=== PATIENT | female | born 1970 | race Caucasian/White ===

== ENCOUNTER → 2017-09-17 | Emergency (ER) | payer OTHER, SELFPAY | PROVIDERS: Emergency Provider Nurse Practitioner; Family Provider Internal Medicine Adolescent Medicine; Visit Provider Nurse Practitioner | DX: K64.9 Unspecified hemorrhoids (principal); K21.9 Gastro-esophageal reflux disease without esophagitis; E78.5 Hyperlipidemia, unspecified | CPT/HCPCS: 99201 ==

== ENCOUNTER → 2018-12-08 16:46 | Outpatient (CLI) | payer OTHER, SELFPAY ==
--- NOTE | 2018-12-08 16:54 | MM_ITS ---
MM Dig screening mamm BI w/CAD ORDERING PHYSICIAN : Rebel Sanford MD PATIENT AGE: 48 years GENDER: Female COMPARISON: Bilateral digital mammogram studies from July 2013 from [facility] November 2010 from [facility] + August 2013 bilateral breast ultrasound which revealed scattered cysts bilaterally. Reflecting underlying fibrocystic change INDICATION: ...: ROUTINE SCREENING no new complaints. No hormones. Noncontributory family history. TECHNIQUE: Standard CC and MLO images were obtained. R2 CAD reviewed. FINDINGS: Heterogeneous but fairly dense breast pattern bilaterally I however similar to previous studies. This breast pattern slightly decreases sensitivity of mammography but no discrete focal dominant mass nor suspicious calcifications. RIGHT BREAST:No new findings of significant concern. 2 areas of few very tiny & faint punctate calcifications at lateral right breast on also seen previously is slightly more evident today. Appears be most likely vascular calcifications on the lateral view. Follow-up in one year would be recommended and encouraged Slight nodular character bilaterally is similar as well. LEFT BREAST: No focal mass lesion. There numerous tiny calcifications, scattered throughout the superior breast. These are best seen superior anterior breast MLO view (with inverted contrast image) . They do seem to be quite scattered on the cc view. This pattern most compatible with adenosis and fibrocystic change. , Comment: The scattered cysts seen in both breast seen on 2013 outside ultrasound confirms the suspected underlying fibrocystic changes and tends to further supports we are merely viewing benign adenosis/fibrocystic calcifications. Thus I believe this 6 month follow-up approach is best approach in this patient, with no interval mammogram studies since 2013 . Also these calcifications are quite small at this point with no one area of significant greater concern than another; and thus would benefit from this time interval to observe for any 1 shows change.. IMPRESSION: .......... Recommend 6- 7 month follow-up to confirm stability of most likely benign adenosis calcifications Left breast. Numerous very tiny faint calcification superior left breast most compatible with adenosis these are slightly more evident than previous study Right breast. Faint loosely grouped calcifications upper-outer quadrant is perhaps very slightly more pronounced than previous outside study as well. Favor adenosis/fibrocystic calcifications bilaterally- but I would recommend a 6-7 month bilateral follow-up mammogram further evaluate. Those should include magnification views at that time. (Again the 2013 mammogram showed numerous small cyst confirming underlying fibrocystic changes which I believe further support this 6-7 month follow-up approach) Heterogeneous Moderately dense breast-slightly decreases sensitivity of mammography BI-RADS Category: 3 Probably Benign Finding Short Term Follow-up RECOMMENDED FOLLOW-UP: 6M to 7 MONTH FOLLOW-UP . Short interval follow-up mammogram bilateral-to include magnification views at that time (A letter has been sent to the patient regarding results of the study.)
== END ==
PROVIDERS: PCP Internal Medicine Adolescent Medicine; Visit Provider Internal Medicine Adolescent Medicine
DX: Z12.31 Encounter for screening mammogram for malignant neoplasm of breast (principal)
CPT/HCPCS: 77067

== ENCOUNTER → 2019-02-04 12:30 | Outpatient (CLI) | payer OTHER, SELFPAY | PROVIDERS: PCP Internal Medicine Adolescent Medicine; Visit Provider Internal Medicine Adolescent Medicine | DX: G47.33 Obstructive sleep apnea (adult) (pediatric) (principal); G47.10 Hypersomnia, unspecified; R06.83 Snoring | CPT/HCPCS: 95806 ==

== ENCOUNTER → 2019-08-01 16:18 | Outpatient (CLI) | payer OTHER, SELFPAY ==
[2019-08-01 17:01] LABS: Basophils # 0.1 K/mm3 (0-0.2); Basophils % 0.6 % (0.1-2.0); Eosinophils # 0.1 K/mm3 (0.0-0.4); Eosinophils % 1.1 % (0.1-12.0); Hematocrit 45.1 % (37.0-47.0); Lymphocytes # 2.2 K/mm3 (0.7-4.5); Lymphocytes % 25.1 % (10-50); Mean Corpuscular Hemoglobin 29.4 pg (27.0-31.2); Mean Platelet Volume 8.6 fl (7.4-10.4); Monocytes # 0.4 K/mm3 (0.1-1.0); Monocytes % 4.2 % (1.7-9.3); Platelet Count 298 K/mm3 (142-424); Red Blood Count 4.75 M/mm3 (4.20-5.40); Red Cell Distribution Width 13.5 % (11.5-17.5); White Blood Count 8.7 K/mm3 (4.8-10.8)
[2019-08-01 18:20] LABS: Alanine Aminotransferase 25 U/L (12-78); Albumin Level 3.9 gm/dL (3.4-5.0); Alkaline Phosphatase 92 U/L (46-116); Anion Gap 15.8 mEq/L (5-15); Aspartate Amino Transferase 14 U/L (15-37); Bilirubin,Total 0.3 mg/dL (0.2-1.0); Blood Urea Nitrogen 10 mg/dL (7-18); Calcium 9.2 mg/dL (8.5-10.1); Carbon Dioxide 23 mmol/L (21.0-32.0); Chloride 104 mmol/L (98-107); Creatinine,Serum 0.73 mg/dL (0.55-1.02); Estimated Glomerular Filt Rate 86 ml/min (>60); GFR (African American) 104 ML/MIN (>60); Globulin 3.8 gm/dl (1.3-3.2); Glucose 80 mg/dL (74-106); Lipase 95 u/L (73-393); Potassium 3.8 mmoL/L (3.5-5.1); Sodium 139 mmol/L (136-145); Total Protein,Serum 7.7 gm/dL (6.4-8.2)
== END ==
PROVIDERS: Visit Provider Internal Medicine Adolescent Medicine
DX: R10.11 Right upper quadrant pain (principal)
CPT/HCPCS: 36415; 80053; 83690; 85025

== ENCOUNTER → 2019-08-02 09:48 | Outpatient (CLI) | payer OTHER, SELFPAY ==
--- NOTE | 2019-08-02 10:12 | US_ITS ---
PROCEDURE: US ABDOMEN COMPLETE CLINICAL INDICATION: RUQ PAIN Abdominal pain COMPARISON: No exams were available for comparison FINDINGS: PANCREAS: Unremarkable. No obvious mass or abnormal fluid collection. No ductal dilatation LIVER: No focal liver lesions demonstrated. Homogeneous echogenicity. No intrahepatic biliary ductal dilatation evident. There is appropriate direction of blood flow within a non dilated portal vein RIGHT KIDNEY: Unremarkable. Normal size and echogenicity. No hydronephrosis LEFT KIDNEY: Unremarkable. Normal size and echogenicity. No hydronephrosis GALLBLADDER: Status post cholecystectomy. Normal common bile duct at 3 mm AORTA: No evidence of aneurysmal dilatation. SPLEEN: Unremarkable. Normal size and echogenicity ASCITES: None demonstrated. IMPRESSION: Post cholecystectomy otherwise negative Dictated by: Juwan Oro MD 08/02/2019 16:42 Electronically signed by Juwan Oro MD in [place] 08/02/2019 16:42
== END ==
PROVIDERS: PCP Internal Medicine Adolescent Medicine; Visit Provider Internal Medicine Adolescent Medicine
DX: R10.11 Right upper quadrant pain (principal)
CPT/HCPCS: 76700

== ENCOUNTER → 2021-07-08 09:32 | Outpatient (CLI) | payer OTHER, SELFPAY ==
--- NOTE | 2021-07-08 09:34 | MM_ITS ---
PROCEDURE INFORMATION: Exam: MG Bilateral Screening 3D Mammography Exam date and time: 07/08/2021 9:34 AM Age: 50 years old Clinical indication: Encounter for screening mammogram for malignant neoplasm of breast TECHNIQUE: Imaging protocol: Bilateral screening tomosynthesis and 2D mammography including computer-aided detection (CAD) when performed. COMPARISON: 12/08/2018. 08/26/2013 FINDINGS: MAMMOGRAPHY: Breast composition: The breasts are extremely dense, which lowers the sensitivity of mammography. Mass: No suspicious masses. Architectural distortion: Questionable focal area of architectural distortion in the central anterior right breast at the nipple line, only well seen on CC frame 49. Finding may represent overlapping breast parenchyma. Calcifications: No suspicious calcifications. Asymmetric density: Questionable 1 cm asymmetry in the outer right breast, anterior to middle depth, only well seen on CC frame 34. Finding may represent overlapping breast parenchyma. Skin thickening: None. Axillary adenopathy: None. IMPRESSION: 1. Recommend right breast spot compression CC/MLO view and ultrasound for further evaluation of a questionable asymmetry in the outer right breast, only well seen on CC projection. 2. Recommend left breast spot compression CC/MLO view and ultrasound for further evaluation of a questionable focal area of architectural distortion in the central anterior right breast, only well seen on CC projection. ASSESSMENT: BI-RADS Category 0: Incomplete- Need Additional Imaging Evaluation and/or Prior Mammograms for Comparison
== END ==
PROVIDERS: PCP Nurse Practitioner Family; Visit Provider Obstetrics & Gynecology Gynecology
DX: Z12.31 Encounter for screening mammogram for malignant neoplasm of breast (principal)
CPT/HCPCS: 77063; 77067

== ENCOUNTER → 2021-08-07 13:42 | Outpatient (CLI) | payer OTHER, SELFPAY ==
--- NOTE | 2021-08-07 13:47 | MM_ITS ---
PROCEDURE: MM DIG MAMM BI DX W/CAD Ultrasound breast right complete Ultrasound breast left complete CLINICAL INDICATION: ABN MAMM COMPARISON: MG DMSB DIG MAMM-SCREEN DENA from 08/26/2013 MG SCBI MM Dig screening mamm BI w/CAD from 12/08/2018 MG MM DIG SCREENING MAMM BI W/CAD from 07/08/2021 US US BREAST LT COMPLETE from 08/07/2021 US US BREAST RT COMPLETE from 08/07/2021 TECHNIQUE: Spot-compression views in bilateral breast ultrasound FINDINGS: The breasts are extremely dense which lowers the sensitivity of mammography. The right breast: Focal spot view of the right breast on the MLO view demonstrates a 4 mm nodular density in the upper aspect of the right breast. This is not well delineated on the ML view and could be due to overlapping fibroglandular tissue. There is also a cyst in the right breast at 12 o'clock which could cause this finding. The questionable area of architectural distortion in the lateral aspect of the right breast appears a compress out on the focal spot compression view and is not demonstrated on the rolled views. The spot-compression views do demonstrate a 5 mm nodular opacity in the lateral aspect of the right breast. This is well-circumscribed and not duplicated on ultrasound. Right breast ultrasound: At 12 o'clock there is a 4 mm cyst near the nipple. At 2 o'clock there is a 5 x 4 cyst mid aspect of the breast.. At 5 o'clock there is a 4 mm cyst. Left breast: No malignant appearing mass or malignant-appearing microcalcification. The area of asymmetry in the retroareolar region is not duplicated on the spot compression view. Left breast ultrasound: 6 mm cyst at 3 o'clock. Seven by 2 x 5 mm complicated cyst at 8 o'clock. 6 mm cyst at 8 o'clock IMPRESSION: Probably benign findings. Recommend bilateral 6 month mammographic and sonographic follow-up BI-RAD Category: 3 Probably Benign Finding Short Term Follow-Up FOLLOW-UP: 6M 6 Month Follow-up (A letter has been sent to the patient regarding results of the study.) Dictated by: Juwan Oro MD 08/13/2021 15:46 Juwan Oro MD in [place] 08/13/2021 15:46
== END ==
PROVIDERS: PCP Nurse Practitioner Family; Visit Provider Obstetrics & Gynecology Gynecology
DX: R92.8 Other abnormal and inconclusive findings on diagnostic imaging of breast (principal)
CPT/HCPCS: 76641; 77062; 77066; G0279

== ENCOUNTER → 2022-02-04 13:30 | Outpatient (CLI) | payer BC, SELFPAY ==
--- NOTE | 2022-02-04 13:41 | US_ITS ---
PROCEDURE INFORMATION: Exam: US Left Breast, Complete US Right Breast, Complete MG Bilateral Diagnostic Breast Tomosynthesis Exam date and time: 02/04/2022 1:34 PM Age: 51 years old Clinical indication: Six-month follow-up for probably benign bilateral asymmetries in sonographic findings from 07/08/2021. TECHNIQUE: Imaging protocol: Complete ultrasound of all four quadrants of the Left breast and the retroareolar regions, including ultrasound of the axilla when performed. Complete ultrasound of all four quadrants of the Right breast and the retroareolar regions, including ultrasound of the axilla when performed. Bilateral Diagnostic tomosynthesis and 2D mammography including computer-aided detection (CAD) when performed. Unilateral or bilateral exam. Limited bilateral spot compression in the CC and MLO views on both sides. COMPARISON: 1. MG MM DIG MAMM BI DX W/CAD 08/07/2021 1:49 PM 2. US BREAST RT COMPLETE 08/07/2021 2:26 PM 3. US BREAST LT COMPLETE 08/07/2021 2:14 PM 4. MG MM DIG SCREENING MAMM BI W/CAD 07/08/2021 9:45 AM 5. MG SCBI MM Dig screening mamm BI w/CAD 12/08/2018 4:57 PM 6. BB US BREAST-DENA 09/14/2013 2:28 PM 7. MG DMSB DIG MAMM-SCREEN DENA 08/26/2013 8:05 AM FINDINGS: MAMMOGRAPHY: Breast composition: The breasts are extremely dense, which lowers the sensitivity of mammography. Mass: None. Architectural distortion: None. Calcifications: No suspicious calcifications. Asymmetric density: None. Skin thickening: None. Axillary adenopathy: None. ULTRASOUND: Bilateral sonography, all 4 quadrants, retroareolar and axilla. On the right, mildly complicated clusters of cysts, at 5 o'clock 3 cm from the nipple, measuring 0.5 x 0.4 by 1.0 cm, which may correspond to the cyst annotated at 5 o'clock near the nipple on 08/07/2021 which measured 0.3 cm; and at 11 o'clock 5 cm from the nipple measuring 1.0 x 0.7 x 0.5 cm. Scattered subcentimeter benign-appearing cysts. No suspicious cystic or solid masses or non masslike findings demonstrated. Sonographically unremarkable right axillary lymph node. On the left, mildly complicated clusters of cysts, at 1 o'clock 6 cm from the nipple, measuring 0.4 x 0.5 x 0.5 cm, at 8 o'clock 9 cm from the nipple measuring 0.5 x 0.3 x 0.5 cm, and at 8 o'clock 12 cm from the nipple measuring 0.7 x 0.3 x 0.6 cm which measured 0.7 cm on 08/07/2021. No suspicious cystic or solid masses or non masslike findings demonstrated. Sonographically unremarkable left axillary lymph node. IMPRESSION: Probably benign waxing and waning mildly complicated cysts, suggest six-month follow-up targeted bilateral breast ultrasound, on the right 5, and 11 o'clock axes and on the left at 1 and 8 o'clock axes, unless otherwise clinically indicated. No mammographic evidence of malignancy ASSESSMENT: BI-RADS Category 3: Probably benign
== END ==
LOC: RAD 13:30
PROVIDERS: PCP Nurse Practitioner Family; Visit Provider Nurse Practitioner Family
DX: R92.2 Inconclusive mammogram (principal)
CPT/HCPCS: 76641; 77062; 77066; G0279

== ENCOUNTER 2023-02-11 15:05 | Emergency (ER) | payer BC, SELFPAY ==
[2023-02-11] VITALS (7 sets, daily range): BP systolic 117–160; BP diastolic 78–89; PULSE 63–79; RESP 10–18; TEMP 36.6–36.9; O2SAT 96–99; BMI 40.6
--- NOTE | 2023-02-11 15:08 | ECG_ITS ---
APPROVED REPORT Exam: Resting ECG HR:67 bpm ECG Measurements Heart Rate 67 AXES MN 145 P 45 QRSd 85 QRS 24 QT 406 T 27 QTc 422 Conclusion SINUS RHYTHM NORMAL ECG UNCONFIRMED REPORT Electronically signed by : Rebel Sanford MD 02/12/2023 21:40:21
--- NOTE | 2023-02-11 16:33 | XR_ITS ---
PROCEDURE INFORMATION: Exam: XR Chest Exam date and time: 02/11/2023 5:21 PM Age: 52 years old Clinical indication: Pain; Left-sided; Patient HX: Lt sided cp w SOA just [employer]; Additional info: Chest pain TECHNIQUE: Imaging protocol: Radiologic exam of the chest. Views: 2 views. COMPARISON: CR CXR CHEST(2 VIEWS-NOT PORTABLE) 16/09/2016 15:45 FINDINGS: Lungs: Stigmata of old granulomatous disease. Pleural spaces: Unremarkable. No pleural effusion. No pneumothorax. Heart/Mediastinum: Unremarkable. No cardiomegaly. Bones/joints: Unremarkable. IMPRESSION: No acute findings.
[2023-02-11 17:10] LABS: Anion Gap 16.6 mEq/L (5-15); Blood Urea Nitrogen 10 mg/dl (7-17); Calcium 8.4 mg/dl (8.4-10.2); Carbon Dioxide 22 mmol/L (22.0-30.0); Chloride 105 mmol/L (98-107); Creatinine Clearance Estimated 130 mL/min (50-200); Estimated Glomerular Filt Rate 76 ml/min (>60); GFR (African American) 92 ML/MIN (>60); Glucose 132 mg/dl (74-100); Potassium 3.6 mmoL/L (3.5-5.1); Sodium 140 mmol/L (136-145)
[2023-02-11 17:23] LABS: Troponin I < 0.01 ng/ml (0.00-0.034)
--- NOTE | 2023-02-11 17:58 | HMH.EDGENADL ---
Discharge Plan Disposition Patient Disposition: Home, Self-Care Condition: Good Chief Complaint: Chest Pain Prescriptions Prescriptions: No Action pravastatin 40 mg tablet 40 mg PO HS citalopram 20 mg tablet 20 mg PO DAILY mirtazapine 30 mg tablet 30 mg PO DAILY lansoprazole 30 mg capsule,delayed release(DR/EC) 30 mg PO DAILY propranolol 20 mg tablet 20 mg PO BID topiramate 50 mg tablet 50 mg PO BID budesonide-formoterol 160-4.5 mcg/actuation HFA aerosol inhaler 1 inh INHALATION DAILYP PRN (Reason: Breathing Problems) Referrals Follow up/Referrals: Eryn Hdez [Primary Care Provider] - See instructions Clinical Impressions Clinical Impression: Chest pain Instructions Patient Instructions: DI for Atypical Chest Pain Print Language Print Language: Lithuanian Discharge ED Provider: Lucas Bradford General Adult HPI General Chief complaint: Chest Pain Stated complaint: Chest pain for 2-3 days Time Seen by Provider: 02/11/23 18:28 Mode of Arrival: Ambulatory Source of Information: Patient Limitations: No Limitations Description of Symptoms (Recalled from ER Triage Doc. by RN): 52 F presents from home c/o left sided chest pain that started 2-3 days ago. She describes the pain as stabbing at times. Pain has not gotten better or worse. Denies cardiac history in the past. NAD, VSS otherwise History of Present Illness HPI narrative: Patient presents to the emergency department with a 2 to 3-day history of left-sided chest pain. Patient states that it has been somewhat persistent. Denies any fever, chills, cough, congestion. Does describe some associated shortness of breath. Denies any vomiting or diarrhea. Denies any chest pain at this time. States that her pain initially started around 130 this afternoon. Related Data Home Medications Medication Instructions Recorded Confirmed budesonide-formoterol HFA 160 1 inh inhalation DAILYP PRN 02/11/23 02/11/23 mcg-4.5 mcg/actuation aerosol Breathing Problems inhaler citalopram 20 mg tablet 20 mg PO DAILY Acid reflux 02/11/23 02/11/23 lansoprazole 30 mg capsule,delayed 30 mg PO DAILY Acid reflux 02/11/23 02/11/23 release mirtazapine 30 mg tablet 30 mg PO DAILY Mood 02/11/23 02/11/23 pravastatin 40 mg tablet 40 mg PO HS Cholesterol 02/11/23 02/11/23 propranolol 20 mg tablet 20 mg PO BID High blood pressure 02/11/23 02/11/23 topiramate 50 mg tablet 50 mg PO BID Migraine 02/11/23 02/11/23 Allergies Allergy/AdvReac Type Severity Reaction Status Date / Time buspirone [From BuSpar] Allergy Verified 09/12/19 12:20 fluticasone Allergy Verified 09/12/19 12:20 [From Advair Diskus] formoterol [From Dulera] Allergy Verified 09/12/19 12:20 mometasone furoate Allergy Verified 09/12/19 12:20 [From Dulera] salmeterol Allergy Verified 09/12/19 12:20 [From Advair Diskus] Sulfa (Sulfonamide Allergy Verified 09/12/19 12:20 Antibiotics) [facility] Disclaimer: The information contained in this section may have been updated after the patient was seen, as this information can be updated by other users. 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
[2023-02-11 18:09] LABS: Basophils # 0.1 K/mm3 (0-0.2); Basophils % 0.9 % (0.1-2.0); Eosinophils # 0.3 K/mm3 (0.0-0.4); Eosinophils % 3.8 % (0.1-12.0); Hematocrit 44.8 % (37.0-47.0); Lymphocytes # 2.3 K/mm3 (0.7-4.5); Lymphocytes % 33.1 % (10-50); Mean Corpuscular HGB Conc 31.2 g/dL (31.8-35.4); Mean Corpuscular Hemoglobin 28.6 pg (27.0-31.2); Mean Corpuscular Volume 91.7 fl (81-99); Mean Platelet Volume 9.2 fl (7.4-10.4); Monocytes # 0.4 K/mm3 (0.1-1.0); Monocytes % 5.8 % (1.7-9.3); Neutrophils # 3.8 K/mm3 (1.8-7.8); Neutrophils % 56.5 % (37.0-80.0); Platelet Count 267 K/mm3 (142-424); Red Blood Count 4.88 M/mm3 (4.20-5.40); Red Cell Distribution Width 13.8 % (11.5-17.5); White Blood Count 6.8 K/mm3 (4.8-10.8)
--- NOTE | 2023-02-11 18:21 | PC.NURSE ---
rounded on pt no complaints at this time
== END 2023-02-11 18:58 | disposition home or self-care (01) ==
PROVIDERS: Emergency Provider Emergency Medicine; PCP Nurse Practitioner Family
DX: R07.9 Chest pain, unspecified (principal); R06.02 Shortness of breath
CPT/HCPCS: 71046; 80048; 84484; 85025; 93005; 99285

== ENCOUNTER 2024-04-09 14:35 | Emergency (ER) | payer BC, SELFPAY ==
[2024-04-09 14:55] VITALS: BP 133/82; PULSE 67; RESP 18; TEMP 36.9; O2SAT 97; BMI 41.9
--- NOTE | 2024-04-09 14:59 | XR_ITS ---
PROCEDURE INFORMATION: Exam: XR Left Hand Exam date and time: 04/09/2024 2:56 PM Age: 53 years old Clinical indication: Injury or trauma; Fall; Blunt trauma (contusions or hematomas); Hand; Left; Additional info: Pain TECHNIQUE: Imaging protocol: Radiologic exam of the left hand. Views: 3 or more views. COMPARISON: CR XR WRIST LT MIN 3V 04/09/2024 2:54 PM FINDINGS: Bones/joints: There is normal anatomic alignment of the left wrist. There is no fracture or destructive bone lesion. Soft tissues: Normal. IMPRESSION: Unremarkable left wrist.
--- NOTE | 2024-04-09 14:59 | XR_ITS ---
PROCEDURE INFORMATION: Exam: XR Left Wrist Exam date and time: 04/09/2024 2:54 PM Age: 53 years old Clinical indication: Injury or trauma; Fall; Blunt trauma (contusions or hematomas); Wrist; Left; Additional info: Pain TECHNIQUE: Imaging protocol: Radiologic exam of the left wrist. Views: 3 or more views. COMPARISON: No relevant prior studies available. FINDINGS: Bones/joints: Normal. No fracture or destructive bone lesion. Soft tissues: Normal. IMPRESSION: No acute findings.
--- NOTE | 2024-04-09 15:27 | ED_ITS ---
Discharge Plan Disposition Patient Disposition: Home, Self-Care Condition: Good Prescriptions Prescriptions: No Action pravastatin 40 mg tablet 40 mg PO HS citalopram 20 mg tablet 20 mg PO DAILY mirtazapine 30 mg tablet 30 mg PO DAILY propranolol 20 mg tablet 20 mg PO BID topiramate 50 mg tablet 50 mg PO BID omeprazole 40 mg Capsule,Delayed Release(Dr/Ec) 40 mg PO DAILY ergocalciferol (vitamin D2) [Vitamin D2] 1,250 mcg (50,000 unit) capsule 1,250 mcg PO WEEKLY Patient Comments: TAKE 1 CAPSULE 1 TIME EACH WEEK Referrals Follow up/Referrals: Eryn Hdez [Primary Care Provider] - See instructions Activity Restrictions/Add. Instructions Additional Instructions/Restrictions: sprain- rest Ice with cold pack for 20 minutes remove may repeat for comfort every hour splint for support and swelling. remove tomorrow and do rom exercises. Elevate with arm above your heart as much as possible to help reduce swelling and therefore pain Ibuprofen every 6 hours as needed for pain or inflammation. If needs something more you can take Tylenol every 4 hours as needed as long as her primary care has told he was okayed for you to take both. Follow-up immediately if new or worsening symptoms or no noticeable improvement over the next 3-5 days. call ortho Clinical Impressions Clinical Impression: Left wrist sprain, Hand pain, left Instructions Patient Instructions: DI for Wrist Sprain, DI for Hand Pain Discharge ED Provider: Matt ([facility] [place] Stated complaint: AO 04/09/24, 06:00, fell, inj left hand Mode of Arrival: Ambulatory Source of Information: Patient Limitations: No Limitations Time Seen by Provider: 04/09/24 15:27 Description of Symptoms (Recalled from Triage Doc. by RN): PATIENT C/O PAIN TO LEFT HAND. SHE STATES SHE FELL THIS MORNING AND TRIED TO CATCH HERSELF WITH HER LEFT HAND HEENT Symptoms (Recalled from RN notes): No Resp Symptoms (Recalled from RN notes): No Skin Symptoms (Recalled from RN notes): No MS Symptoms (Recalled from RN notes): Yes Functional Status (Recalled from RN notes): WNL History of Present Illness Provider Complaint: 53 yr old female presents for left hand pain s/p fall. pt states she caught herself with her hand Related Data Home Medications Medication Instructions Recorded Confirmed citalopram 20 mg tablet 20 mg PO DAILY Acid reflux 02/11/23 04/09/24 mirtazapine 30 mg tablet 30 mg PO DAILY Mood 02/11/23 04/09/24 pravastatin 40 mg tablet 40 mg PO HS Cholesterol 02/11/23 04/09/24 propranolol 20 mg tablet 20 mg PO BID High blood pressure 02/11/23 04/09/24 topiramate 50 mg tablet 50 mg PO BID Migraine 02/11/23 04/09/24 ergocalciferol (vitamin D2) 1,250 1,250 mcg PO WEEKLY 04/09/24 04/09/24 mcg (50,000 unit) capsule (Vitamin D2) omeprazole 40 mg capsule,delayed 40 mg PO DAILY 04/09/24 04/09/24 release Allergies Allergy/AdvReac Type Severity Reaction Status Date / Time buspirone [From BuSpar] Allergy Verified 09/12/19 12:20 fluticasone Allergy Verified 09/12/19 12:20 [From Advair Diskus] formoterol [From Dulera] Allergy Verified 09/12/19 12:20 mometasone furoate Allergy Verified 09/12/19 12:20 [From Dulera] salmeterol Allergy Verified 09/12/19 12:20 [From Advair Diskus] Sulfa (Sulfonamide Allergy Verified 09/12/19 12:20 Antibiotics) Worker's Comp Is this a Worker's Comp case?: No [facility] Disclaimer: The information contained in this section may have been updated after the patient was seen, as this information can be updated by other users. 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) Smoking Status: Never smoker second hand exposure: Yes alcohol intake: never substance use type: denies use current occupational status: employed Travel in the last 8 weeks: None household members: spouse housing: house current occupation: [employer] current occupational exposures/hazards: No caffeine: Yes ROS Obtained: Yes All systems reviewed & no additional complaints except as documented Constitutional Constitutional: Reports system reviewed and no additional complaints, except as documented Eyes Eyes: Reports system reviewed and no additional complaints, except as documented ENT Ears, Nose, Mouth, and Throat: Reports system reviewed and no additional complaints, except as documented Cardiovascular Cardiovascular: Reports system reviewed and no additional complaints, except as documented Respiratory Respiratory: Reports system reviewed and no additional complaints, except as documented Musculoskeletal Musculoskeletal: Reports system reviewed and no additional complaints, except as documented, Reports as per HPI, Reports joint stiffness and Reports limited range of motion Integumentary/Breasts Skin/Breast: Reports system reviewed and no additional complaints, except as documented Neurologic Neurologic: Reports system reviewed and no additional complaints, except as documented Endocrine Endocrine: Reports system reviewed and no additional complaints, except as documented Hematologic/Lymphatic Henatologic/Lymphatic: Reports system reviewed and no additional complaints, except as documented Physical Exam General General appearance: alert and in no apparent distress ENT ENT exam: Present normal exam Respiratory Respiratory exam: Present normal lung sounds bilaterally Cardiovascular Cardiovascular exam: Present regular rate and normal rhythm Expanded Upper Extremity Exam Left: Hand L/R front image: 2 1. other (tender) Neurological Exam Neurological exam: Present alert and oriented X3 Skin Skin exam: Present warm and intact Medical Decision Making Medical Records Medical records reviewed: Yes I reviewed the patient's medical records. Hayes Inquiry Pt receiving controlled substance: No Hayes was queried for this patient: No Vital Signs: 04/09/24 14:55 Temperature 98.5 F Temperature Source Oral Pulse Rate [Right Brachial] 67 Respiratory Rate 18 Blood Pressure [Right Arm] 133/82 Blood Pressure Mean [Right Arm] 99 Blood Pressure Source [Right Arm] Automatic Cuff Blood Pressure Position [Right Arm] Sitting 02 Sat by Pulse Oximetry 97 Oxygen Delivery Method Room Air Orders (Tests/Meds): ORDERS Category Date Time Status Wrist XR left minimum 3 views [XR wrist LT min 3V] Stat Exams 04/09/24 14:59 Taken XR hand LT min 3V Stat Exams 04/09/24 14:59 Taken Radiology Data #1: Image(s): Wrist and Hand Image Reviewed: Yes I have reviewed radiologist's interpretation Preliminary Findings: Normal/NAD
[2024-04-09 15:54] VITALS: BP 133/82; PULSE 67; RESP 18; TEMP 36.9; O2SAT 97
== END 2024-04-09 15:58 | disposition home or self-care (01) ==
PROVIDERS: Emergency Provider Nurse Practitioner Family; PCP Nurse Practitioner Family
DX: S63.502A Unspecified sprain of left wrist, initial encounter (principal); M79.642 Pain in left hand; W19.XXXA Unspecified fall, initial encounter
CPT/HCPCS: 73110; 73130; 99203; 99212; G0463

== ENCOUNTER 2024-05-06 11:54 | Outpatient (CLI) | payer BC, SELFPAY ==
[2024-05-06 12:23] LABS: Basophils # 0.1 K/mm3 (0-0.2); Basophils % 1.1 % (0.1-2.0); Eosinophils # 0.2 K/mm3 (0.0-0.4); Eosinophils % 2.9 % (0.1-12.0); Hematocrit 46.5 % (37.0-47.0); Hemoglobin 14.5 g/dL (12.2-16.2); Lymphocytes % 25.8 % (10-50); Mean Corpuscular HGB Conc 31.2 g/dL (31.8-35.4); Mean Corpuscular Hemoglobin 30.4 pg (27.0-31.2); Mean Corpuscular Volume 97.6 fl (81-99); Mean Platelet Volume 8.4 fl (7.4-10.4); Monocytes # 0.4 K/mm3 (0.1-1.0); Monocytes % 5.4 % (1.7-9.3); Neutrophils # 5.1 K/mm3 (1.8-7.8); Neutrophils % 64.8 % (37.0-80.0); Platelet Count 262 K/mm3 (142-424); Red Blood Count 4.76 M/mm3 (4.20-5.40); Red Cell Distribution Width 13.8 % (11.5-17.5); White Blood Count 7.9 K/mm3 (4.8-10.8)
[2024-05-13 02:22] LABS: D001-IgE D pteronyssinus 0.18 kU/L (Class 0/I); D002-IgE D farinae 0.15 kU/L (Class 0/I); E001-IgE Cat Dander <0.10 kU/L (Class 0); E005-IgE Dog Dander <0.10 kU/L (Class 0); E072-IgE Mouse Urine <0.10 kU/L (Class 0); G002-IgE Bermuda Grass 0.21 kU/L (Class 0/I); G006-IgE Timothy Grass 0.18 kU/L (Class 0/I); I006-IgE Cockroach, German 0.68 kU/L (Class II); Immunoglobulin E, Total 44 IU/mL (6-495); M001-IgE Penicillium chrysogen <0.10 kU/L (Class 0); M002-IgE Cladosporium herbarum <0.10 kU/L (Class 0); M003-IgE Aspergillus fumigatus <0.10 kU/L (Class 0); M006-IgE Alternaria alternata <0.10 kU/L (Class 0); T001-IgE Maple/Box Elder 0.17 kU/L (Class 0/I); T003-IgE Common Silver Birch 0.11 kU/L (Class 0/I); T006-IgE Cedar, Mountain 0.19 kU/L (Class 0/I); T007-IgE Oak, White 0.15 kU/L (Class 0/I); T008-IgE Elm, American 0.19 kU/L (Class 0/I); T010-IgE Walnut 0.18 kU/L (Class 0/I); T011-IgE Maple Leaf Sycamore 0.18 kU/L (Class 0/I); T014-IgE Cottonwood 0.12 kU/L (Class 0/I); T015-IgE Ash, White 0.19 kU/L (Class 0/I); T022-IgE Pecan, Hickory 0.16 kU/L (Class 0/I); T070-IgE White Mulberry 0.13 kU/L (Class 0/I); W001-IgE Ragweed, Short 0.18 kU/L (Class 0/I); W011-IgE Thistle, Russian 0.15 kU/L (Class 0/I); W014-IgE Pigweed, Common 0.15 kU/L (Class 0/I)
== END 2024-05-06 23:59 | disposition home or self-care (01) ==
LOC: LAB 11:55
PROVIDERS: PCP Nurse Practitioner Family; Visit Provider Internal Medicine Pulmonary Disease
DX: J30.9 Allergic rhinitis, unspecified (principal); J45.909 Unspecified asthma, uncomplicated
CPT/HCPCS: 36415; 82785; 85025; 86003

== ENCOUNTER 2024-06-23 13:36 | Outpatient (CLI) | payer BC, SELFPAY ==
--- NOTE | 2024-06-23 13:44 | XR_ITS ---
FINAL REPORT CLINICAL HISTORY: Shortness of breath COMPARISON: 10/21/2023 FINDINGS: No acute pulmonary density is evident. There is no evidence of effusion or other pleural disease. The mediastinum has a normal appearance. The cardiac silhouette is unremarkable. IMPRESSION: Unremarkable chest exam. Reviewed, Interpreted and Dictated by Delmis Lambert MD Transcribed by Patience Marie Authenticated and [facility]
[2024-06-23] MEDS: ALBUTEROL 0.083% 2.5 MG/3 ML NEB IH (16:15)
[2024-06-23] MEDS: METHACHOLINE CHLORIDE 65MG/18ML KIT 64 MG IH (16:15)
== END 2024-06-23 23:59 | disposition home or self-care (01) ==
LOC: RT 13:37
PROVIDERS: PCP Nurse Practitioner Family; Visit Provider Internal Medicine Pulmonary Disease
DX: R05.3 Chronic cough (principal); R06.00 Dyspnea, unspecified
CPT/HCPCS: 71046; 94070; 95070; J7613; J7674

== ENCOUNTER 2024-09-09 13:35 | Outpatient (CLI) | payer BC, SELFPAY ==
--- NOTE | 2024-09-09 13:36 | CT_ITS ---
FINAL REPORT CLINICAL HISTORY: Chronic cxough FINDINGS: Axial CT images of the chest were obtained with contrast. Coronal reformatted images were also obtained. This study was performed with techniques to keep radiation doses as low as reasonably achievable, (ALARA). Individualized dose reduction techniques using automated exposure control or adjustment of mA and/or KV according to the patient''''s size were employed. There is no evidence of mediastinal or hilar mass or adenopathy.No axillary mass or adenopathy is identified. There are bilateral pulmonary groundglass opacities which represent edema or alveolitis. Limited images of the upper abdomen reveal postoperative changes of cholecystectomy. There is fatty infiltration of the liver. IMPRESSION: No mass or localized inflammatory process. Reviewed, Interpreted and Dictated by Poncho Kent III, MD Transcribed by Kerrie Jacob Authenticated and . [facility]
[2024-09-09 14:11] LABS: Blood Urea Nitrogen 9 mg/dl (7-17); Estimated Glomerular Filt Rate 66 ml/min (>60); GFR (African American) 80 ML/MIN (>60)
[2024-09-09] MEDS: IOPAMIDOL-370 (76%);100ML BOTTLE 75 ML IV (14:41)
[2024-09-09] MEDS: SODIUM CHLORIDE 0.9% 10ML SYR (RAD ONLY) 10 ML IV (14:41)
== END 2024-09-09 23:59 | disposition home or self-care (01) ==
LOC: RAD 13:36
PROVIDERS: PCP Nurse Practitioner Family; Visit Provider Internal Medicine Pulmonary Disease
DX: R91.8 Other nonspecific abnormal finding of lung field (principal); R05.3 Chronic cough; E34.00 Carcinoid syndrome, unspecified; J30.9 Allergic rhinitis, unspecified; Z80.9 Family history of malignant neoplasm, unspecified
CPT/HCPCS: 36415; 71260; 82565; 84520; Q9967

== ENCOUNTER 2024-11-07 14:57 | Outpatient (CLI) | payer BC, SELFPAY ==
--- NOTE | 2024-11-07 15:04 | US_ITS ---
FINAL REPORT CLINICAL HISTORY: RIGHT SIDE LOCALIZED SWELLING MASS AND LUMP COMPARISON: None FINDINGS: Limited sonographic images were obtained of the soft tissues in the neck at the area of interest. There is no adenopathy. No cystic or soft tissue mass is evident. IMPRESSION: No discrete lesion. If clinical suspicion high for a palpable abnormality, consider contrast-enhanced CT or MR follow-up. Reviewed, Interpreted and Dictated by Delmis Lambert MD Transcribed by Patience Marie Authenticated and . [facility]
== END 2024-11-07 23:59 | disposition home or self-care (01) ==
LOC: RAD 14:58
PROVIDERS: PCP Nurse Practitioner Family; Visit Provider Nurse Practitioner Family
DX: R22.1 Localized swelling, mass and lump, neck (principal)
CPT/HCPCS: 76536

== ENCOUNTER 2024-11-25 09:24 | Outpatient (CLI) | payer BC, SELFPAY ==
[2024-11-25 10:25] VITALS: PULSE 61; PULSE 63
[2024-11-25] MEDS: ALBUTEROL 0.083% 2.5 MG/3 ML NEB IH (10:25)
== END 2024-11-25 23:59 | disposition home or self-care (01) ==
LOC: RT 09:24
PROVIDERS: PCP Nurse Practitioner Family; Visit Provider Internal Medicine Pulmonary Disease
DX: R06.09 Other forms of dyspnea (principal)
CPT/HCPCS: 94060; 94618; 94640; 94726; 94729; J7613

== ENCOUNTER 2025-01-19 07:30 | Outpatient (CLI) | payer BC, SELFPAY ==
--- NOTE | 2025-01-19 07:32 | CT_ITS ---
FINAL REPORT TECHNIQUE: Pre- and postcontrast images of the abdomen were performed by computed tomography. This study was performed with techniques to keep radiation doses as low as reasonably achievable, (ALARA). Individualized dose reduction techniques using automated exposure control or adjustment of mA and/or kV according to the patient's size were employed. CLINICAL HISTORY: HIATAL HERNIA W/ GASTROESOPHAGEAL REFLUX FINDINGS: The lung bases are clear. There is no nephrolithiasis on the precontrast images. There is fatty infiltration of the liver. No focal liver lesion is identified. The gallbladder is absent. The spleen is unremarkable. The adrenals are normal. The pancreas is unremarkable. On the postcontrast images, no renal mass or hydronephrosis is identified. There is no hiatal hernia. No small bowel obstruction is identified. The appendix is not identified but may not be included in this exam. There is no evidence of lymphadenopathy or free fluid. The osseous structures are without acute abnormality. Findings are suggestive of left greater than right sacroiliitis. IMPRESSION: No acute intra-abdominal process. No significant hiatal hernia. Reviewed, Interpreted and Dictated by Pascale Perez MD Transcribed by Marcy Valerio Authenticated and [facility]
[2025-01-19] MEDS: SODIUM CHLORIDE 0.9% 10ML SYR (RAD ONLY) 10 ML IV (07:58)
[2025-01-19] MEDS: IOPAMIDOL-370 (76%);100ML BOTTLE 75 ML IV (07:58)
== END 2025-01-19 23:59 | disposition home or self-care (01) ==
LOC: RAD 07:31
PROVIDERS: PCP Nurse Practitioner Family; Visit Provider Nurse Practitioner Family
DX: R10.13 Epigastric pain (principal)
CPT/HCPCS: 74170; Q9967

== ENCOUNTER 2025-03-09 06:43 | Day surgery (SDC) | payer BC, SELFPAY ==
[2025-03-08 10:29] VITALS: BMI 43.2
[2025-03-09 07:31] VITALS: BP 136/69; PULSE 59; RESP 16; TEMP 36.2; O2SAT 97
[2025-03-09] MEDS: LACTATED RINGERS 1000ML 1,000 ML 50 ML IV (07:36)
[2025-03-09 07:49] LABS: Urine Pregnancy, HCG Qual. Negative (Negative)
--- NOTE | 2025-03-09 08:11 | EXP.HP ---
History of Present Illness *Admission Date: 03/09/25 *Reason for visit:: Personal history of adenomatous colon polyps/family history *History of present illness: Mrs. Gan is a 54-year-old female who is here for surveillance colonoscopy secondary to a personal history of adenomatous colon polyps and family history (father with colon cancer at the age of 53). The examination is deemed medically necessary for surveillance colonoscopy. The patient has been seen, interviewed and examined prior to the procedure by both myself and the anesthesia provider. [facility] Disclaimer: The information contained in this section may have been updated after the patient was seen, as this information can be updated by other users. 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 (Updated 03/09/25 @ 08:13 by Hugo Brothers II, MD) Chronic recurrent sinusitis Carcinoid syndrome Abnormality of lung on CXR Family history of carcinoid tumor Family history of carcinoid syndrome Allergic rhinitis Chronic cough Depression Anxiety History of gastroesophageal reflux (GERD) Migraine Asthma Hyperlipidemia Surgical History History of endometrial ablation History of tubal ligation History of cholecystectomy Family History Other Cancer Social History Smoking Status: Never smoker second hand exposure: Yes alcohol intake: never substance use type: denies use current occupational status: employed Travel in the last 8 weeks?: None household members: spouse housing: house 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 current occupational exposures/hazards: No caffeine: Yes Have you lived/traveled outside US in past 30 days?: No Contact w/someone who lives/traveled outside US past 30 days?: No Exposure to someone with infectious disease in past 14 days?: No Do you have a fever (greater than 100.4 F or 38 C)?: No Have you tested positive for COVID-19?: No Exposed to someone with COVID-19 in past 14 days?: No Do you have a sore throat?: No Do you have a cough?: No Do you have any weakness?: No Do you have any diarrhea?: No Are you experiencing any unusual bleeding?: No Do you have any muscle aches/pain?: No Do you have any abdominal pain?: No Are you experiencing loss of taste or smell?: No Other 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 Have you received the Flu Vaccine for this season: Yes Have you received the Pneumonia Vaccine: Yes Review of Systems Review of Systems Review of systems (narrative): Negative *Cardiovascular Comments: Negative *Gastrointestinal Comments: Negative *Genitourinary Comments: Negative *Musculoskeletal Comments: Negative *Neurologic Comments: Negative Meds Home Medications and Allergies Home Medications ?Medication ?Instructions ?Recorded ?Confirmed ?Type citalopram 20 mg tablet 20 mg PO DAILY Acid reflux 02/11/23 03/08/25 History mirtazapine 30 mg tablet 30 mg PO DAILY Mood 02/11/23 03/08/25 History pravastatin 40 mg tablet 40 mg PO HS Cholesterol 02/11/23 03/08/25 History propranolol 20 mg tablet 20 mg PO BID High blood pressure 02/11/23 03/08/25 History topiramate 50 mg tablet 50 mg PO BID Migraine 02/11/23 03/08/25 History ergocalciferol (vitamin D2) 1,250 1,250 mcg PO WEEKLY 04/09/24 03/08/25 History mcg (50,000 unit) capsule (Vitamin D2) albuterol 90 mcg-budesonide 80 2 inh inhalation TID PRN soa 05/06/24 03/08/25 History mcg/actuation HFA aerosol inhaler (Airsupra) montelukast 10 mg tablet 10 mg PO DAILY #90 tabs 05/06/24 03/08/25 Rx (Singulair) levocetirizine 5 mg tablet 5 mg PO DAILY PRN allergy symptoms 07/11/24 03/08/25 Rx #60 tabs fluticasone propionate 50 See Rx Instructions .Route 10/12/24 03/08/25 Rx mcg/actuation nasal .COMPLEX #16 grams spray,suspension hydrochlorothiazide 25 mg tablet 25 mg PO DAILY 11/25/24 03/08/25 History ondansetron 4 mg disintegrating 4 mg PO NEEDED PRN Nausea And 11/25/24 03/08/25 History tablet Vomiting sumatriptan succinate 100 mg tablet 100 mg PO DAILY 11/25/24 03/08/25 History azelastine 137 mcg (0.1 %) nasal See Rx Instructions .Route 02/06/25 03/08/25 Rx spray .COMPLEX #30 mL famotidine 40 mg tablet 40 mg PO DAILY 02/23/25 03/08/25 History pantoprazole 40 mg tablet,delayed 40 mg PO DAILY 02/23/25 03/08/25 History release New Prescriptions to Start Prescriptions: Allergies Allergy/AdvReac Type Severity Reaction Status Date / Time buspirone (From BuSpar) Allergy Verified 02/23/25 14:45 fluticasone (From Advair Allergy Verified 02/23/25 14:45 Diskus) formoterol (From Dulera) Allergy Verified 02/23/25 14:45 mometasone furoate (From Allergy Verified 02/23/25 14:45 Dulera) salmeterol (From Advair Allergy Verified 02/23/25 14:45 Diskus) Sulfa (Sulfonamide Allergy Verified 02/23/25 14:45 Antibiotics) doxycycline AdvReac Mild Verified 02/23/25 14:45 Exam Data for Last 24 hours Vital signs and Labs for Last 24 Hours: Temp Pulse Resp BP Pulse Ox O2 Del Method 97.1 F L 59 L 16 136/69 97 Room Air 03/09/25 07:31 03/09/25 07:31 03/09/25 07:31 03/09/25 07:31 03/09/25 07:31 03/09/25 07:31 Laboratory Results - last 24 hr 03/09/25 07:24: Urine HCG, Qual Negative I & O for Last 24 hours: Intake & Output 03/06/25 03/07/25 03/08/25 03/09/25 23:59 23:59 23:59 23:59 Weight 229 lb *Routine HEENT Exam Head: Present normocephalic Eye: Present EOMI and PERRL ENT: Present mucous membranes moist *Routine Neck Exam Neck: Present supple *Routine Respiratory Exam Respiratory: Present CTA bilaterally *Routine Cardiovascular Exam Cardiovascular: Present RRR *Routine Abdominal Exam Abdominal: Present soft and normoactive bowel sounds; Absent tenderness *Routine Rectal Exam Rectal:: deferred *Routine Genitalia Exam Genitalia:: deferred *Routine Extremities Exam Extremities: Absent cyanosis, clubbing or edema *Routine Skin Exam Skin: Present warm; Absent rash *Routine Neurological Exam Neurological: Present alert and oriented X3 Assessment and Plan *Assessment and plan (1) Family history of colon cancer in father: Status: Acute Category: Medical Code(s): Z80.0 - Family history of malignant neoplasm of digestive organs (2) Personal history of adenomatous and serrated colon polyps: Status: Acute Category: Medical Code(s): Z86.0101 - Personal history of adenomatous and serrated colon polyps Plan A/P: 1. Personal history of adenomatous colon polyps and family history of colon cancer (father) is the preprocedural diagnosis. The patient will be anesthetized/sedated using MAC sedation. The patient has been seen and examined. Cardiac and lung assessment prior to the examination is stable. Proceed with planned surveillance colonoscopy.
--- NOTE | 2025-03-09 08:18 | P.PNANES_ITS ---
[facility] Disclaimer: The information contained in this section may have been updated after the patient was seen, as this information can be updated by other users. 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 (Updated 03/09/25 @ 08:13 by Hugo Brothers II, MD) Chronic recurrent sinusitis Carcinoid syndrome Abnormality of lung on CXR Family history of carcinoid tumor Family history of carcinoid syndrome Allergic rhinitis Chronic cough Depression Anxiety History of gastroesophageal reflux (GERD) Migraine Asthma Hyperlipidemia Surgical History History of endometrial ablation History of tubal ligation History of cholecystectomy Family History Other Cancer Social History Smoking Status: Never smoker second hand exposure: Yes alcohol intake: never substance use type: denies use current occupational status: employed Travel in the last 8 weeks?: None household members: spouse housing: house 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 current occupational exposures/hazards: No caffeine: Yes Have you lived/traveled outside US in past 30 days?: No Contact w/someone who lives/traveled outside US past 30 days?: No Exposure to someone with infectious disease in past 14 days?: No Do you have a fever (greater than 100.4 F or 38 C)?: No Have you tested positive for COVID-19?: No Exposed to someone with COVID-19 in past 14 days?: No Do you have a sore throat?: No Do you have a cough?: No Do you have any weakness?: No Do you have any diarrhea?: No Are you experiencing any unusual bleeding?: No Do you have any muscle aches/pain?: No Do you have any abdominal pain?: No Are you experiencing loss of taste or smell?: No [facility] Anesthesia Checklist Patient Identification Patient Identification: Verbal (Name & ) Structural Data Admitted From: Home Planned Operative Procedure/s: colonoscopy Consent for Planned Operative Procedure(s) Verified: Yes NPO Status Verified Time NPO: 00:00 Additional verifications Anesthesia Reactions: No Airway Assessment Mallampati Score:: Class II C-Spine Mobility Assessed: Yes TMJ Mobility Assessed: Yes Dentition: Good Dentition Neurological Assessment Level of Consciousness: Awake, Alert and Appropriate Anesthesia Plan Anesthesia Risk discussed: Yes Anesthesia Plan: Verified ASA Class: II Anesthesia Type: MAC
--- NOTE | 2025-03-09 08:24 | P.PCN_ITS ---
[facility] Procedure Note Date: 03/09/25 Time: 08:40 Procedure Note:: Colonoscopy Procedure Report: Colonoscopy with cold snare polypectomy Endoscopist: Hugo Brothers II, MD Referring physician: CONCHITA Meléndez Date of Procedure: March 09, 2025 Equipment: Olympus 190 variable stiffness pediatric colonoscope Sedation: MAC sedation Indication: Mrs. Gan is a 54-year-old female who is here for follow-up surveillance colonoscopy secondary to a personal history of adenomatous colon polyps and family history of colon cancer (father at age 53). The patient did have a colonoscopy 16 years ago that was normal. Her last colonoscopy with ct in August 2019 revealed 3 polyps (tubular adenomas x 3) which were removed. The patient does have some chronic IBS with alternating diarrhea and constipation. The patient does report some functional abdominal pain/right upper quadrant abdominal pain. This has improved with Protonix and famotidine but she will have recurrence if she misses 1 dose. She has had prior cholecystectomy secondary to gallstones. She does get some bloating, belching and hiccups. Procedure: Prior to the procedure, a history and physical exam was performed, and patient's medications and allergies were reviewed. The risks, benefits and alternatives of the sedation and procedure were discussed with the patient. All questions were answered and informed consent was obtained. The patient was brought to the procedure room. Patient identification and proposed procedure were verified by the physician and the nurse. The patient was placed in a left lateral decubitus position and the scope was passed under direct vision. Throughout the procedure, the patient's blood pressure, pulse, and oxygen saturations were monitored continuously. The colonoscopy was accomplished without difficulty. The patient tolerated the procedure well. Findings: On digital rectal examination there was normal rectal tone. There were no external hemorrhoids. The colonoscope was introduced through the anal canal to the rectum and advanced to the cecum. The ileocecal valve and appendiceal orifice were identified. The scope was advanced a short distance into the ileum which appeared grossly normal. The scope was then withdrawn into the colon. The cecum, ascending and transverse colon and mucosa were grossly normal. There was some angulation at the hepatic flexure suggestive of hepatic flexure syndrome. There were mildly scattered diverticuli throughout the descending and sigmoid colon (LEFT colon). There was a single 3 mm polyp in the sigmoid colon removed via cold biopsy. The rectum itself was normal. Upon retroflexion within the rectum there were grade 2-3 internal hemorrhoids. The preparation was excellent throughout with [place] Preparation Score of 9. The cecal time was 11 minutes. Impression: 1. Diminutive 3 mm sigmoid polyp 2. Mild left-sided diverticulosis 3. Grade 2-3 internal hemorrhoids Plan: I will follow-up the polyp histology and recommend repeat surveillance colonoscopy again in 5 years. We will discuss additional measures for her alternating IBS. I do feel that she has some hepatic flexure syndrome causing her right upper quadrant abdominal pain. We will discuss treatment options.
[2025-03-09 08:45] VITALS: BP 95/67; PULSE 67; RESP 16; TEMP 36.1; O2SAT 94
[2025-03-09 08:55] VITALS: BP 121/75; PULSE 74; RESP 18; O2SAT 97
[2025-03-09 09:05] VITALS: BP 140/75; PULSE 62; RESP 18; O2SAT 99
[2025-03-09 09:15] VITALS: BP 115/67; PULSE 61; RESP 19; O2SAT 98
== END 2025-03-09 09:18 | disposition home or self-care (01) ==
PROVIDERS: PCP Nurse Practitioner Family; Visit Provider Internal Medicine Gastroenterology
PROC: 0DJD8ZZ Inspection of Lower Intestinal Tract, Via Natural or Artificial Opening Endoscopic (ICD-10-PCS; CPT 45378; principal; 2025-03-09 08:30)
DX: Z12.11 Encounter for screening for malignant neoplasm of colon (principal); Z86.0101 Personal history of adenomatous and serrated colon polyps; Z80.0 Family history of malignant neoplasm of digestive organs; K63.5 Polyp of colon; K57.30 Diverticulosis of large intestine without perforation or abscess without bleeding; K64.2 Third degree hemorrhoids; K59.89 Other specified functional intestinal disorders; K58.2 Mixed irritable bowel syndrome; K21.9 Gastro-esophageal reflux disease without esophagitis; E78.5 Hyperlipidemia, unspecified; F41.9 Anxiety disorder, unspecified; J45.909 Unspecified asthma, uncomplicated; G43.909 Migraine, unspecified, not intractable, without status migrainosus; F32.A Depression, unspecified; Z90.49 Acquired absence of other specified parts of digestive tract; Z79.899 Other long term (current) drug therapy; Z88.8 Allergy status to other drugs, medicaments and biological substances; Z88.2 Allergy status to sulfonamides; Z88.1 Allergy status to other antibiotic agents
CPT/HCPCS: 45380; 81025; J2003; J2704; J7120

== ENCOUNTER 2025-08-28 07:17 | Day surgery (SDC) | payer BC, SELFPAY ==
[2025-08-22 12:59] VITALS: BMI 40.2
--- NOTE | 2025-08-28 07:00 | EXP.HP ---
History of Present Illness *Admission Date: 08/28/25 *History of present illness: Mrs. Gan is a 54-year-old female who is here for diagnostic EGD. The patient reports a longstanding nausea and functional dyspepsia. She also has IBS?C and failed Linzess and lubiprostone. She is on prucalopride which is helping. The patient also is taking herbal Iberogast and buspirone. She is on Protonix and Pepcid. Her last EGD with me was in August 2019. The examination is deemed medically necessary for diagnostic EGD. The patient has been seen, interviewed and examined prior to the procedure by both myself and the anesthesia provider. [facility] Disclaimer: The information contained in this section may have been updated after the patient was seen, as this information can be updated by other users. 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 Chronic recurrent sinusitis Carcinoid syndrome Abnormality of lung on CXR Family history of carcinoid tumor Family history of carcinoid syndrome Allergic rhinitis Chronic cough Depression Anxiety History of gastroesophageal reflux (GERD) Migraine Asthma Hyperlipidemia Surgical History History of endometrial ablation History of tubal ligation History of cholecystectomy Family History Other Cancer Social History Smoking Status: Never smoker second hand exposure: Yes alcohol intake: never substance use type: denies use current occupational status: employed Travel in the last 8 weeks?: None household members: spouse housing: house 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 current occupational exposures/hazards: No caffeine: Yes Have you lived/traveled outside US in past 30 days?: No Contact w/someone who lives/traveled outside US past 30 days?: No Exposure to someone with infectious disease in past 14 days?: No Do you have a fever (greater than 100.4 F or 38 C)?: No Have you tested positive for COVID-19?: No Exposed to someone with COVID-19 in past 14 days?: No Do you have a sore throat?: No Do you have a cough?: No Do you have any weakness?: No Do you have any diarrhea?: No Are you experiencing any unusual bleeding?: No Do you have any muscle aches/pain?: No Do you have any abdominal pain?: No Are you experiencing loss of taste or smell?: No Other 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 Have you received the Flu Vaccine for this season: Yes Have you received the Pneumonia Vaccine: Yes Review of Systems Review of Systems Review of systems (narrative): Negative *Cardiovascular Comments: Negative *Gastrointestinal Comments: Negative *Genitourinary Comments: Negative *Musculoskeletal Comments: Negative *Neurologic Comments: Negative Meds Home Medications and Allergies Home Medications ?Medication ?Instructions ?Recorded ?Confirmed ?Type pravastatin 40 mg tablet 40 mg PO HS Cholesterol 02/11/23 08/22/25 History topiramate 50 mg tablet 50 mg PO BID Migraine 02/11/23 08/22/25 History ergocalciferol (vitamin D2) 1,250 1,250 mcg PO WEEKLY 04/09/24 08/22/25 History mcg (50,000 unit) capsule (Vitamin D2) albuterol 90 mcg-budesonide 80 2 inh inhalation TID PRN soa 05/06/24 08/22/25 History mcg/actuation HFA aerosol inhaler (Airsupra) levocetirizine 5 mg tablet 5 mg PO DAILY PRN allergy symptoms 07/11/24 08/22/25 Rx #60 tabs buspirone 10 mg tablet 10 mg PO BID #60 tabs 03/09/25 08/22/25 Rx prucalopride 2 mg tablet 2 mg PO DAILY #30 tabs 03/09/25 08/22/25 Rx montelukast 10 mg tablet See Rx Instructions .Route 05/22/25 08/22/25 Rx .COMPLEX #90 tabs sumatriptan succinate 100 mg tablet 100 mg PO DAILY PRN migranes 06/26/25 08/22/25 History hydrochlorothiazide 25 mg tablet 25 mg PO DAILY PRN heart 07/03/25 08/22/25 History metoprolol succinate 25 mg 25 mg PO DAILY #30 tabs 07/04/25 08/22/25 Rx tablet,extended release 24 hr citalopram 20 mg tablet 20 mg PO DAILY #90 tabs 07/11/25 08/22/25 Rx famotidine 40 mg tablet 40 mg PO DAILY #90 tabs 10/14/25 11/25/25 Rx pantoprazole 40 mg tablet,delayed 40 mg PO DAILY 30 days #30 tabs 07/18/25 08/22/25 Rx release ondansetron 4 mg disintegrating 4 mg translingual NEEDED PRN 08/17/25 08/22/25 Rx tablet Nausea And Vomiting #30 tabs azelastine 137 mcg (0.1 %) nasal 1 spray intranasal DAILY 08/22/25 08/22/25 History spray fluticasone propionate 50 1 spray intranasal DAILY 08/22/25 08/22/25 History mcg/actuation nasal spray,suspension New Prescriptions to Start Prescriptions: Allergies Allergy/AdvReac Type Severity Reaction Status Date / Time Sulfa (Sulfonamide Allergy Intermediate Difficulty Verified 08/28/25 07:51 Antibiotics) Breathing formoterol (From Dulera) Allergy Palpitation Verified 08/28/25 07:51 s mometasone furoate (From Allergy Palpitation Verified 08/28/25 07:51 Dulera) s salmeterol (From Advair Allergy Palpitation Verified 08/28/25 07:51 Diskus) s doxycycline AdvReac Mild Difficulty Verified 08/28/25 07:51 Breathing fluticasone (From Advair AdvReac Rash Verified 08/28/25 07:51 Diskus) Exam *Routine HEENT Exam Head: Present normocephalic Eye: Present EOMI and PERRL ENT: Present mucous membranes moist *Routine Neck Exam Neck: Present supple *Routine Respiratory Exam Respiratory: Present CTA bilaterally *Routine Cardiovascular Exam Cardiovascular: Present RRR *Routine Abdominal Exam Abdominal: Present soft and normoactive bowel sounds; Absent tenderness *Routine Rectal Exam Rectal:: deferred *Routine Genitalia Exam Genitalia:: deferred *Routine Extremities Exam Extremities: Absent cyanosis, clubbing or edema *Routine Skin Exam Skin: Present warm; Absent rash *Routine Neurological Exam Neurological: Present alert and oriented X3 Assessment and Plan *Assessment and plan (1) Nausea: Status: Acute Category: Medical Code(s): R11.0 - Nausea (2) Functional dyspepsia: Status: Acute Category: Medical Code(s): K30 - Functional dyspepsia (3) Functional abdominal pain syndrome: Status: Acute Category: Medical Code(s): R10.9 - Unspecified abdominal pain Plan A/P: 1. Nausea, functional dyspepsia and functional abdominal pain is the preprocedural diagnosis. The patient will be anesthetized/sedated using MAC sedation. The patient has been seen and examined. Cardiac and lung assessment prior to the examination is stable. Proceed with planned diagnostic EGD.
--- NOTE | 2025-08-28 07:03 | HMH.PROCNOTE ---
[facility] Procedure Note Date: 08/28/25 Time: 08:30 Procedure Note:: Upper Endoscopy Procedure Report: Esophagogastroduodenoscopy with cold biopsies Endoscopost: Hugo Brothers II, MD Referring Physician: Justin Soto MD Date of Procedure: August 28, 2025 Equipment: Olympus GIF-1100 standard upper endoscope Sedation: MAC sedation Indications: Mrs. Gan is a 54-year-old female who is here for diagnostic EGD. The patient reports a longstanding nausea and functional dyspepsia. She does report daily and persistent nausea. She also has some epigastric abdominal discomfort and early satiety. She reports minor bloating and belching. She reports no heartburn or dysphagia. She also has IBS?C and failed Linzess and lubiprostone. She is on prucalopride which is helping. The patient also is taking herbal Iberogast and buspirone. She is on Protonix and Pepcid. Her last EGD with or was in August 2019. The patient did have a CT scan of the abdomen and pelvis in December 2024 that was normal. The examination is deemed medically necessary for diagnostic EGD. Procedure: Prior to the procedure, a history and physical exam was performed, and patient's medications and allergies were reviewed. The risks, benefits and alternatives of the sedation and procedure were discussed with the patient. All questions were answered and informed consent was obtained. The patient was brought to the procedure room. Patient identification and proposed procedure were verified by the physician and the nurse. The patient was placed in a left lateral decubitus position and the scope was passed under direct vision. Throughout the procedure, the patient's blood pressure, pulse, and oxygen saturations were monitored continuously. The upper GI endoscopy was accomplished without difficulty. The patient tolerated the procedure well. Findings: The scope was passed directly into the upper esophagus and advanced to the third portion of the duodenum. The post bulbar duodenum and duodenal bulb were normal with normal mucosa and conniventes. 2 cold biopsies were taken from the second portion of the duodenum for the disaccharidase assay. The scope was withdrawn through a normal duodenal bulb and pylorus into the stomach. There was very mild linear reactive gastropathy of the antrum. Cold biopsies were obtained. The body and fundus of the stomach were normal. Upon retroflexion there was a very small sliding 1 to 2 cm hiatal hernia. The scope was then withdrawn into the esophagus. There was no evidence of reflux esophagitis or Lang's. The remainder of the esophageal mucosa was normal. Impression: 1. Very small sliding hiatal hernia (1 to 2 cm) 2. Mild linear reactive gastropathy of antrum Plan: I will follow-up the biopsies and discuss treatment options. I would continue the prucalopride. I would consider switching central neuromodulation to mirtazapine (with or without buspirone). I would also consider additional enzyme support and we will follow-up the disaccharidase assay.
[2025-08-28 07:52] VITALS: BP 130/77; PULSE 75; RESP 18; TEMP 36.4; O2SAT 96
[2025-08-28] MEDS: LACTATED RINGERS 1000ML 1,000 ML 50 ML IV (07:58)
--- NOTE | 2025-08-28 08:14 | EXP.ANES.CKL ---
[facility] Disclaimer: The information contained in this section may have been updated after the patient was seen, as this information can be updated by other users. 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 Chronic recurrent sinusitis Carcinoid syndrome Abnormality of lung on CXR Family history of carcinoid tumor Family history of carcinoid syndrome Allergic rhinitis Chronic cough Depression Anxiety History of gastroesophageal reflux (GERD) Migraine Asthma Hyperlipidemia Surgical History History of endometrial ablation History of tubal ligation History of cholecystectomy Family History Other Cancer Social History Smoking Status: Never smoker second hand exposure: Yes alcohol intake: never substance use type: denies use current occupational status: employed Travel in the last 8 weeks?: None household members: spouse housing: house 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[employer] current occupational exposures/hazards: No caffeine: Yes Have you lived/traveled outside US in past 30 days?: No Contact w/someone who lives/traveled outside US past 30 days?: No Exposure to someone with infectious disease in past 14 days?: No Do you have a fever (greater than 100.4 F or 38 C)?: No Have you tested positive for COVID-19?: No Exposed to someone with COVID-19 in past 14 days?: No Do you have a sore throat?: No Do you have a cough?: No Do you have any weakness?: No Do you have any diarrhea?: No Are you experiencing any unusual bleeding?: No Do you have any muscle aches/pain?: No Do you have any abdominal pain?: No Are you experiencing loss of taste or smell?: No [facility] Anesthesia Checklist Patient Identification Patient Identification: Arm Band and Verbal (Name & ) Structural Data Admitted From: Home Planned Operative Procedure/s: EGD Consent for Planned Operative Procedure(s) Verified: Yes Verified Documents: Surgical Consent NPO Status Verified Time NPO: 00:00 Additional verifications Anesthesia Reactions: No Airway Assessment Mallampati Score:: Class II C-Spine Mobility Assessed: Yes TMJ Mobility Assessed: Yes Dentition: Good Dentition Neurological Assessment Level of Consciousness: Awake, Alert and Appropriate Hx Seizures: No Numbness or tingling in extremities: No Anesthesia Plan Anesthesia Risk discussed: Yes Anesthesia Plan: Verified ASA Class: II Anesthesia Type: MAC
[2025-08-28 08:30] VITALS: BP 101/47; PULSE 94; RESP 18; TEMP 36.2; O2SAT 91
[2025-08-28 08:40] VITALS: BP 108/77; PULSE 83; O2SAT 93
[2025-08-28 08:50] VITALS: BP 114/74; PULSE 80; O2SAT 94
[2025-08-28 09:00] VITALS: BP 125/83; PULSE 77; O2SAT 97
[2025-08-31 13:30] LABS: Interpretation Notes (.); Lactase 21.55 (>/= 14.0); Maltase 226.25 (>/= 110.0); Palatinase 16.16 (>/= 8.5); Reference Notes (.); Sucrase 52.32 (>/= 25.0)
== END 2025-08-28 09:00 | disposition home or self-care (01) ==
PROVIDERS: PCP Family Medicine; Visit Provider Internal Medicine Gastroenterology
PROC: 0DJ08ZZ Inspection of Upper Intestinal Tract, Via Natural or Artificial Opening Endoscopic (ICD-10-PCS; CPT 43239; principal; 2025-08-28 09:00)
DX: K44.9 Diaphragmatic hernia without obstruction or gangrene (principal); K31.89 Other diseases of stomach and duodenum; K58.1 Irritable bowel syndrome with constipation; E34.00 Carcinoid syndrome, unspecified; K30 Functional dyspepsia; R05.3 Chronic cough; F32.A Depression, unspecified; R68.81 Early satiety; F41.9 Anxiety disorder, unspecified; K21.9 Gastro-esophageal reflux disease without esophagitis; G43.909 Migraine, unspecified, not intractable, without status migrainosus; J45.909 Unspecified asthma, uncomplicated; E78.5 Hyperlipidemia, unspecified; Z90.49 Acquired absence of other specified parts of digestive tract; Z98.51 Tubal ligation status; Z79.899 Other long term (current) drug therapy; Z88.2 Allergy status to sulfonamides; Z88.8 Allergy status to other drugs, medicaments and biological substances; Z88.1 Allergy status to other antibiotic agents
CPT/HCPCS: 43239; 82657; J2003; J2704; J7120

== ENCOUNTER 2025-09-19 14:46 | Emergency (ER) | payer BC, SELFPAY ==
[2025-09-19 14:55] VITALS: BP 144/75; PULSE 97; RESP 18; TEMP 37.4; O2SAT 99; BMI 35.2
[2025-09-19 15:00] VITALS: PULSE 105; O2SAT 97
--- OUTSIDE RECORDS SUMMARY | 2025-09-19 15:04 | XMS_ITS | Clinical Summary ---
Author Organization [facility] Address [address] [place] [address] Phone Care Team Providers Care Forwarder Operator Name Role Phone Unavailable Primary Care Provider Unavailabl e Social History Tobacco Use Types Packs/Day Years Used Date Smoking Tobacco: Never Assessed Comments No Sex and Gender Information Value Date Recorded Sex Assigned at Not on file Legal Sex Female 8:52 AM EST Gender Identity Not on file Sexual Orientation Not on file Obstetrics History Para Term AB IAB SAB Ectopic Multiple Livin g Live Births 1 Plan of Treatment Health Maintenance Due Date Last Done Comments Annual Wellness Exam 12/06/1975 DTaP/TDaP/Td (1 - Tdap) 12/06/1991 Hepatitis B Vaccine (1 of 3 - 19+ 3-dose series) 12/06/1991 Cervical Cancer Screening 1993 Pap Smear 1993 HPV/Pap Cotest 2002 Cologuard 2017 Colon Cancer Screening 2017 Colonoscopy 2017 FIT 2017 Sigmoidoscopy 2017 Virtual Colonography 2017 Pneumococcal Vaccine 50+ (1 of 1 - PCV) 2022 Zoster (1 of 2) 2022 COVID-19 Vaccine (3 - 2024- season) 2025 11/22/2020, 10/08/2020 Influenza Vaccine (#1) 2025 , 09/23/2023, 08/15/2022, Additional history exists Breast Cancer Screening 10/31/2026 10/31/2024 Meningococcal B Vaccine Aged Out No l onger eligible based on patient's age to complete this topic Procedures Procedure Name Priority Date/Time Associated Diagnosis Comments MM MAMMO DIGITAL VIMAL SCREEN BILAT Routine 10/31/2024 10:24 AM EST Encounter for screening mammogram for malignant neoplasm of breast from Last 3 Months or Most Recently Relevant to Health Maintenance Results * MM MAMMO DIGITAL VIMAL SCREEN BILAT (10/31/2024 10:24 AM EST) Anatomical Region Laterality Modality Breast Bilateral Mammography 10/31/2024 10:2 4 AM EST Impressions 11/04/2024 1:57 PM EST Negative ([id number]) RECOMMENDATION: Routine Screening Mammogram in 1 Year Bilateral No additional recommendation No additional laterality COMMENTS: Narrative 11/04/2024 1:57 PM EST EXAM: MM MAMMO DIGITAL VIMAL SCREEN BILAT EXAM DATE: 10/31/2024 10:24 AM INDICATION: Z12.31-Encounter for screening mammogram for malignant neoplasm of [id number] COMPARISON STUDIES: Compared with prior studies the most recent being No Qualifying Comparisons Found TISSUE DENSITY: The breasts are heterogeneously dense, which may obscure small masses. FINDINGS: No mammographic evidence of malignancy. Procedure Note Corwin Gonzalez III, MD - 11/04/2024 EXAM: MM MAMMO DIGITAL VIMAL SCREEN BILAT EXAM DATE: 10/31/2024 10:24 AM INDICATION: Z12.31-Encounter for screening mammogram for malignantneoplasm of [id number] COMPARISON STUDIES: Compared with prior studies the most recent being No Qualifying Comparisons Found TISSUE DENSITY: The breasts are heterogeneously dense, which may obscuresmall masses. FINDINGS: No mammographic evidence of malignancy. IMPRESSION: Negative ([id number]) RECOMMENDATION: Routine Screening Mammogram in 1 Year Bilateral No additional recommendation No additional laterality COMMENTS: Eryn Hdez APRN IMG MAMMOGRAPHY ORDERABLES Fin al Result from Last 3 Months or Most Recently Relevant to Health Maintenance Insurance [facility] [place] [address] [employer] PPO
--- OUTSIDE RECORDS SUMMARY | 2025-09-19 15:04 | XMS_ITS | Referral Summary ---
Author Organization [employer] ([place], [place], [place], [place], [place]) Address [address] [place] [address] Care Team Providers Care Sprayer Hand Name Role Phone Eryn Hdez APRN Primary Care Provider + [phone] Allergies Active Allergy Reactions Criticality Noted Date Comments Buspirone Anxiety High 08/05/2022 Sulfa (Sulfonamide Antibiotics) Shortness Of Breath High 08/05/2022 Medications citalopram (CeleXA) 20 MG tablet Take 20 mg by mouth daily. 06/09/2022 Active lansoprazole (PREVACID) 30 MG capsule Take 30 mg by mouth once. 07/18/2022 Active mirtazapine (REMERON) 30 MG tablet Take 30 mg by mouth nightly. 06/09/2022 Active pravastatin (PRAVACHOL) 40 MG tablet Take 40 mg by mouth daily. 06/09/2022 Active propranoloL (INDERAL) 20 MG tablet Take 20 mg by mouth 2 (two) times daily. 06/09/2022 Active topiramate (TOPAMAX) 50 MG tablet Take 50 mg by mouth 2 (two) times daily. 06/09/2022 Active ergocalciferol (ERGOCALCIFEROL) 1,250 mcg (50,000 unit) capsule Take 50,000 Units by mouth once a week. Active Social History Tobacco Use Types Packs/Day Years Used Date Smoking Tobacco: Never Smokeless Tobacco: Never Alcohol Use Standard Drinks/Week Comments Yes 0 (1 standard drink = 0.6 oz pur e alcohol) occasionally Food Insecurity Answer Date Recorded Food run out past 12 months Not on file 09/28 Food did not last past 12 months Not on file 10/16/2023 Employment Answer Date Recorded Help finding and keeping a job Not on file 0 10/16/2023 Family and Community Support Answer Gigi e Recorded Help with Day to Day Activities Not on file 10/16/2023 Feeling Lonely or Isolated Not on file 10/16 Educational Attainment Answer Date Julian rded Speak language other than Macedonian at home Not on file 10/16/2023 Want help with school or training Not on file 10/16/2023 Substance Use Answer Date Recorded Used prescription meds for non-medical reasons N ot on file 10/16/2023 Used illegal drugs past 12 months Not on file 10/16/2023 Comments No Sex and Gender Information Value Date Recorded Sex Assigned at Not on file Legal Sex Female 6:35 PM CDT Gender Identity Not on file Sexual Orientation Not on file Last Filed Vital Signs Vital Sign Reading Time Taken Comments Blood Pressure 113/80 08/18/2022 3:55 PM EST Pulse 85 08/18/2022 3:55 PM EST Temperature 36.8 C (98.3 F) 08/11/2022 2:36 PM EST Respiratory Rate 20 08/11/2022 2:36 PM EST Oxygen Saturation 98% 08/11/2022 2:36 PM EST Inhaled Oxygen Concentration - - Weight 90.6 kg (199 lb 11.2 oz) 08/18/2022 3:55 PM EST Height 154.9 cm (5' 1 ) 08/18/2022 3:55 PM EST Body Mass Index 37.73 08/18/2022 3:55 PM EST Plan of Treatment Not on file Insurance BLUE CROSS/BLUE SHIELD Advance Directives For more information, please contact: [phone] * Full Code (Latest Code Status on File) Date Activated Date Inactivated Comments 08/11/2022 12:34 PM 08/11/2022 3:56 PM * Full Code Date Activated Date Inactivated Comments 08/11/2022 7:57 AM 08/11/2022 12:33 PM Care Teams Sprayer Hand Relationship Specialty Start Date End Date Eryn Hdez, CASE WORKER PCP - General Family Medicine 08/05/22
--- OUTSIDE RECORDS SUMMARY | 2025-09-19 15:04 | XMS_ITS | Clinical Summary ---
Author Organization [employer] ([place], [place], [place], [place], [place]) Address [address] [place] [address] Care Team Providers Care Service Director Name Role Phone Eryn Hdez APRN Primary Care Provider [phone] Allergies Active Allergy Reactions Criticality Noted Date [...] Units by mouth once a week. Active Family History 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 Relation Name Comments Cancer Father Asthma Mother Hyperlipidemia Mother Cancer Paternal Aunt Relation Name Status Comments Father Mother Paternal Aunt Social History Tobacco Use Types Packs/Day Years [...] 0 10/16/2023 Family and Community Support Answer Ggii e Recorded Help with Day to Day Activities Not on file 10/16/2023 Feeling Lonely or Isolated Not on file 10/16 Educational Attainment Answer Date Julian rded Speak language other than Azeri at home Not on file 10/16/2023 Want [...] 08/18/2022 3:55 PM EST Plan of Treatment Health Maintenance Due Date Last Done Comments CT Colonography 1972 Colonoscopy 1972 Colorectal Cancer Screening 1972 FOBT/FIT 1972 Fit-DNA (Cologuard) 1972 Sigmoidoscopy 1972 Depression Screening (12+) 1984 Tobacco Cessation Counseling and Screening (12+) 1984 DTAP/TDAP/TD VACCINES (1 - Tdap) 12/06/1991 Pap Smear 1993 Breast Cancer Screening 2012 Pneumococcal 50+ years (1 of 1 - PCV) 2022 Shingles Vaccine (Zoster) (1 of 2) 2022 COVID-19 VACCINE (3 - 2024- season) 2025, 10/08/2020 Influenza Vaccine (#1) 2025 Insurance BLUE CROSS/BLUE SHIELD Advance Directives For more information, please contact: [phone] * Full Code (Latest Code Status on File) Date Activated Date Inactivated Comments 08/11/2022 12:34 PM 08/11/2022 3:56 PM * Full Code Date Activated Date Inactivated Comments 08/11/2022 7:57 AM 08/11/2022 12:33 PM Care Teams Service Director Relationship Specialty Start Date End Date Eryn Hdez, MIG TIG WELDER PCP - General Family Medicine 08/05/22
--- NOTE | 2025-09-19 15:07 | ED_ITS ---
<Statement entered by Tomeka Snow MD - 09/22/25 23:35> I was consulted by the QUINTIN, and we discussed the complexity of the problems being addressed. I approved the treatment and management plan for this patient's care in the emergency department, thus performing a substantive portion of the medical decision making. Tomeka Snow MD, LIZ, FACEP Discharge Plan Disposition Patient Disposition: Home, Self-Care Condition: Good Prescriptions Prescriptions: New amoxicillin-pot clavulanate 875-125 mg tablet 1 tab PO BID 5 Days Qty: 10 0RF No Action Airsupra 90-80 mcg/actuation HFA aerosol inhaler 2 inh inhalation TID PRN (Reason: soa) sumatriptan succinate 100 mg tablet 100 mg PO DAILY PRN (Reason: migranes) Patient Comments: TAKE 1 TABLET AT START OF HEADACHE. MAY TAKE ANOTHER TABLET IN 2 HOURS IF NEEDED. DO NOT TAKE MORE THAN 2 TABLETS IN 24 HOURS. levocetirizine 5 mg tablet 5 mg PO DAILY PRN (Reason: allergy symptoms) Qty: 60 1RF hydrochlorothiazide 25 mg tablet 25 mg PO DAILY PRN (Reason: heart ) Patient Comments: TAKE 1 TABLET 1 TIME EACH DAY NEEDED FOR LEG SWELLING metoprolol succinate 25 mg tablet extended release 24 hr 25 mg PO DAILY Qty: 30 3RF ondansetron 4 mg tablet,disintegrating 4 mg translingual NEEDED PRN (Reason: Nausea And Vomiting) Qty: 30 5RF montelukast 10 mg tablet See Rx Instructions .ROUTE .COMPLEX Qty: 90 2RF Dose Instruction: TAKE 1 TABLET 1 TIME EACH DAY Rx Instructions: TAKE 1 TABLET 1 TIME EACH DAY famotidine 40 mg tablet 40 mg PO DAILY Qty: 90 1RF citalopram 20 mg tablet 20 mg PO DAILY Qty: 90 1RF pantoprazole 40 mg tablet,delayed release (DR/EC) 40 mg PO DAILY 30 Days Qty: 30 2RF pravastatin 40 mg tablet 40 mg PO HS topiramate 50 mg tablet 50 mg PO BID ergocalciferol (vitamin D2) [Vitamin D2] 1,250 mcg (50,000 unit) capsule 1,250 mcg PO WEEKLY Patient Comments: TAKE 1 CAPSULE 1 TIME EACH WEEK azelastine 137 mcg (0.1 %) spray,non-aerosol 1 spray intranasal DAILY Rx Instructions: SPRAY 2 TIMES IN EACH NOSTRIL 1 TIME EACH DAY AT BEDTIME fluticasone propionate 50 mcg/actuation spray,suspension 1 spray intranasal DAILY Rx Instructions: SPRAY 2 TIMES IN EACH NOSTRIL 1 TIME EACH DAY metoclopramide HCl 10 mg tablet 10 mg PO ACHS Qty: 120 6RF Rx Instructions: Please take 1 tablet by mouth AC and at bedtime buspirone 10 mg tablet 10 mg PO BID Qty: 60 12RF Rx Instructions: Please take 1 tablet p.o. nightly x 7 days and then 1 tablet p.o. twice daily thereafter prucalopride 2 mg tablet 2 mg PO DAILY Qty: 30 12RF Rx Instructions: Please take 1 tablet p.o. every morning Referrals Follow up/Referrals: Poncho Rogers MD [Staff Physician, General Surgery] - See instructions Justin Soto MD [Primary Care Provider, Internal Medicine] - See instructions Activity Restrictions/Add. Instructions Additional Instructions/Restrictions: Please return to the emergency department with any worsening signs or symptoms, please keep the area clean and dry, please return to the emergency department or PCPs office to have the drain removed in 5 to 7 days. Please take antibiotic medication as prescribed with food. Clinical Impressions Clinical Impression: Pilonidal abscess Instructions Patient Instructions: DI for Pilonidal Cyst Drainage or Removal Print Language Print Language: Citizen Of [place] Discharge ED Provider: Rosina Cox Adult HPI General Chief complaint: Skin/Abscess/Foreign Body Stated complaint: boil Time Seen by Provider: 09/19/25 14:54 Mode of Arrival: Ambulatory Source of Information: Patient Description of Symptoms (Recalled from ER Triage Doc. by RN): pt has a boil on her l inner buttock. completed a round of doxy and now reports chilling and fevers at home. states pain is a 10/10 no drainage noted from the site but redness and streaking noted History of Present Illness HPI narrative: 54-year-old female presents to the emergency department with left buttock pain, with some drainage, redness, is concerned about a boil , patient states has been ongoing for the last 2 weeks, she endorses fever and chills, Tmax of 100.6 , degrees Fahrenheit last night, she has been on doxycycline p.o. for the last week with little to no relief of her symptomatology, she denies any abdominal pain nausea vomiting constipation diarrhea no chest pain or shortness of breath, no urinary symptomatology, no hematuria no hematemesis or melena no hemoptysis, denies any alcohol tobacco or drug use. Other past medical history is consistent with IBS, family history of carcinoid syndrome, SOLOMON/MDD, GERD, hyperlipidemia, hypertension, migraines. Initial triage vitals notable for tachycardia otherwise unremarkable. Please note that above description of symptoms, in this electronic medical record under categorization of recalled from ER triage doctor by RN are reflective of an initial nursing assessment, however, is not reflective of my full history and physical exam that was personally taken and clarified. Consequentially, this preceding description of symptoms, which may include the patient's categorized chief complaint in the EMR, do not reflect my personal clinical impression, and the ultimate description of history of present illness and patient stated complaints should be deferred to this section of the note. Unless stated otherwise or congruent with this section of the note, additional signs, symptoms, or incongruence should be interpreted as inaccurate with my clinical impression. Onset (ago): week(s) Related Data Home Medications ?Medication ?Instructions ?Recorded ?Confirmed pravastatin 40 mg tablet 40 mg PO HS Cholesterol 01/2609/19/25 topiramate 50 mg tablet 50 mg PO BID Migraine 09/19/25 ergocalciferol (vitamin D2) 1,250 1,250 mcg PO WEEKLY 04/09/24 09/19/25 mcg (50,000 unit) capsule (Vitamin D2) albuterol 90 mcg-budesonide 80 2 inh inhalation TID DC N soa 05/06/24 09/19/25 mcg/actuation HFA aerosol inhaler (Airsupra) sumatriptan succinate 100 mg tablet 100 mg PO DAILY DC N migranes 06/26/25 09/19/25 hydrochlorothiazide 25 mg tablet 25 mg PO DAILY PRN he art 07/03/25 09/19/25 azelastine 137 mcg (0.1 %) nasal 1 spray intranasal DA KYLE 08/22/25 09/19/25 spray fluticasone propionate 50 1 spray intranasal DAILY 09/19/25 mcg/actuation nasal spray,suspension Previous Rx's ?Medication ?Instructions ?Recorded levocetirizine 5 mg tablet 5 mg PO DAILY PRN allergy s ymptoms 10/14/24 #60 tabs buspirone 10 mg tablet 10 mg PO BID #60 tabs prucalopride 2 mg tablet 2 mg PO DAILY #30 tabs 03/09 montelukast 10 mg tablet See Rx Instructions .Route 0 05/22/25 .COMPLEX #90 tabs metoprolol succinate 25 mg 25 mg PO DAILY #30 tabs 04/21 tablet,extended release 24 hr citalopram 20 mg tablet 20 mg PO DAILY #90 tabs 06/28 01/20 famotidine 40 mg tablet 40 mg PO DAILY #90 tabs 06/28 01/20 pantoprazole 40 mg tablet,delayed 40 mg PO DAILY 30 da ys #30 tabs 07/18/25 release ondansetron 4 mg disintegrating 4 mg translingual N EEDED PRN 08/17/25 tablet Nausea And Vomiting #30 tabs metoclopramide HCl 10 mg tablet 10 mg PO ACHS nausea a nd vomiting 08/28/25 #120 tabs amoxicillin 875 mg-potassium 1 tab PO BID 5 days #10 t abs 09/19/25 clavulanate 125 mg tablet Allergies Allergy/AdvReac Type Severity Reaction Status Date / Time Sulfa (Sulfonamide Allergy Intermediate Difficulty Verified 09/19/25 12:39 Antibiotics) Breathing formoterol (From Dulera) Allergy Palpitation Verified 09/19/25 12:39 s mometasone furoate (From Allergy Palpitation Verified 09/19/25 12:39 Dulera) s salmeterol (From Advair Allergy Palpitation Verified 09/19/25 12:39 Diskus) s doxycycline AdvReac Mild Difficulty Verified 09/19/25 12:39 Breathing fluticasone (From Advair AdvReac Rash Verified 09/19/25 12:39 Diskus) [facility] Disclaimer: The information contained in this section may have been updated after the patient was seen, as this information can be updated by other users. 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 Chronic recurrent sinusitis Carcinoid syndrome Abnormality of lung on CXR Family history of carcinoid tumor Family history of carcinoid syndrome Allergic rhinitis Chronic cough Depression Anxiety History of gastroesophageal reflux (GERD) Migraine Asthma Hyperlipidemia Surgical History History of endometrial ablation History of tubal ligation History of cholecystectomy Family History Other Cancer Social History Smoking Status: Never smoker second hand exposure: Yes alcohol intake: never substance use type: denies use current occupational status: employed Travel in the last 8 weeks?: None household members: spouse housing: house current occupation: [employer] current occupational exposures/hazards: No caffeine: Yes Have you lived/traveled outside [place] in past 30 days?: No Contact w/someone who lives/traveled outside US past 30 days?: No Exposure to someone with infectious disease in past 14 days?: No Do you have a fever (greater than 100.4 F or 38 C)?: No Have you tested positive for COVID-19?: No Exposed to someone with COVID-19 in past 14 days?: No Do you have a sore throat?: No Do you have a cough?: No Do you have any weakness?: No Do you have any diarrhea?: No Are you experiencing any unusual bleeding?: No Do you have any muscle aches/pain?: No Do you have any abdominal pain?: No Are you experiencing loss of taste or smell?: No Other 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 Have you received the Flu Vaccine for this season: Yes Have you received the Pneumonia Vaccine: Yes ROS Obtained: Yes All systems reviewed & no additional complaints except as documented Physical Exam General General appearance: alert and in no apparent distress Head Head exam: atraumatic and normocephalic Eye Eye exam: Present PERRL and EOMI ENT ENT exam: Present mucous membranes moist Neck Neck exam: Present normal inspection Chest Chest inspection: Present normal inspection and symmetric chest wall rise Respiratory Respiratory exam: Present normal lung sounds bilaterally; Absent respiratory distress Cardiovascular Cardiovascular exam: Present regular rate and normal rhythm Abdominal Exam Abdominal exam: Present soft; Absent tenderness or guarding Rectal Exam Rectal exam: Present hemorrhoids comment: Obvious area of erythema, with some loculated formation on the left lateral aspect along the pilonidal tract, concerning for underlying pilonidal cyst/abscess. Extremities Exam Extremities exam: Present normal inspection Neurological Exam Neurological exam: Present alert and oriented X3 Psychiatric Psychiatric exam: Present normal affect Skin Skin exam: Present warm and dry Medical Decision Making Medical Records Medical records reviewed: Yes I reviewed the patient's medical records. Screening: Per USPSTF and CDC recommendations, given the prevalence of disease in our region, it is our hospital?s policy to screen for HIV and viral Hepatitis for all patients aged 18 and over and those with ongoing risk factors. [place] Inquiry Pt receiving controlled substance: No [place] was queried for this patient: No Vital Signs: 09/19/25 14:55 09/19/25 15:00 09/19/25 15:30 Temperature 99.4 F Temperature Source Oral Pulse Rate 105 H 88 Pulse Rate [Right] 97 H Respiratory Rate 18 Blood Pressure [Right Arm] 144/75 H Blood Pressure Mean [Right Arm] 98 02 Sat by Pulse Oximetry 99 97 96 Lab Data Lab results reviewed: Yes I reviewed the patient's lab results. Lab Results 09/19/25 15:23: WBC 8.8, RBC 4.69, Hgb 13.9, Hct 43.2, MCV 92.1, MCH 29.6, MCHC 32.2, RDW 12.4, Plt Count 225, MPV 10.4, Neut % (Auto) 70.4, Lymph % (Auto) 19.2, [place] % (Auto) 8.4, Eos % (Auto) 0.8, Baso % (Auto) 0.7, Neut # (Auto) 6.2, Lymph # (Auto) 1.7, [place] # (Auto) 0.7, Eos # (Auto) 0.1, Baso # (Auto) 0.1, Sodium 142, Potassium 3.6, Chloride 109 H, Carbon Dioxide 25, Anion Gap 11.6, BUN 13, Creatinine 1.10 H, Estimated Creat Clear 88, Estimated GFR 52 L, Est GFR ( Amer) 63, Glucose 111 H, Lactate 1.3, Calcium 9.9, Total Bilirubin 0.3, AST 27, ALT 31, Alkaline Phosphatase 101, Total Protein 7.7, Albumin 4.7, Globulin 3.0, Albumin/Globulin Ratio 1.6, Lipase 86, HCV Ab VANESSA w/Rflx PCR Qn Negative, HIV Ag/Ab Combo Qual Negative 09/19/25 15:23 09/19/25 15:23 Orders (Tests/Meds): ED MEDICATIONS Discontinued Medications Generic Name Dose Route Start Last Admin Trade Name Freq PRN Reason Stop Dose Admin Lidocaine/Epinephrine 10 ml 12/23/25 15:28 Lidocaine 1% W/Epi 1:100,000 20ml Vial IJ 09/19/25 15:29 ONCE ONE Morphine Sulfate 2 mg 09/19/25 15:27 09/19/25 15:41 Morphine 2mg/Ml Syringe IV 09/19/25 15:28 2 mg ONCE ONE Administration Ondansetron HCl 4 mg 09/19/25 15:28 09/19/25 15:41 Ondansetron 4mg/2ml Vial IV 09/19/25 15:29 4 mg ONCE ONE Administration ORDERS Category Date Time Status POCUS Point of Care (ER Only) Stat Exams 09/19/25 15:19 Ordered Complete Blood Count Auto Diff Stat Lab 09/19/25 15:23 Completed Comprehensive Metabolic Panel Stat Lab 09/19/25 15:23 Completed HIV Combo Stat Lab 09/19/25 15:23 Completed Hepatitis C Ab Qual. W/ RFX Stat Lab 09/19/25 15:23 Completed Lactic Acid Stat Lab 09/19/25 15:23 Completed Lipase Stat Lab 09/19/25 15:23 Completed Blood Culture Stat Micro 09/19/25 15:42 Received Medical Decision Narrative: 54-year-old female presents to the emergency department with a 2-week history of left lateral boil/pain, differential diagnose include but not limited pilonidal cyst, pilonidal abscess, cellulitis, other soft tissue abscess abscess, among others. I discussed this patient's case with the attending physician Dr. Cox she saw and examined the patient as well. Will obtain basic laboratory studies, lactic acid lipase level blood cultures, POCUS, CBC grossly unremarkable Limited MSK/soft tissue ultrasound Indication: [-Soft tissue pain -Soft tissue swelling -Soft tissue redness -Fever] Identified structures: Location: [Left lateral buttocks, pilonidal sinus tract] Findings: [-Abscess. Size (cm): 1-1.5 -Cellulitis ] Impression: [-Abscess of soft tissue -Cellulitis of soft tissue Images [were saved] to permanent archive The study [was] technically adequate CMP is noted for minimal creatinine elevation 1.1, no lactic acidosis I discussed need for incision and drainage with the patient over the bedside all risk and benefits of procedure were discussed with patient by the bedside patient and family elected to proceed. See procedure note for full details, I performed I&D with 11 blade scalpel, 27-gauge needle, utilizing 1% lidocaine with epi 5 mL, and 2 vertical incisions were made midline, with 30 cc of purulent drainage, patient had relief with the procedure no complications, bleeding control [place] drain placed. Will place the patient on Augmentin 875 mg p.o. twice daily for 5 days. Patient and family given strict return precautions. Patient and family are given instructions on how to take care of the wound/[place] drain. Patient to follow-up with PCP in the upcoming days/weeks. Procedures Abscess I/D Site: back and sean-rectal Side (if applicable): left Sedation/analgesia: other Local Anesthetic: lidocaine 1% and with epi Amount of anesthesia used (mL): 5 Technique: needle aspiration and incised with #11 blade Amount of fluid expressed (mL): 30 Irrigation: Yes Packing used?: [place] drain Critical Care Critical Care Time Critical Care Time: No
[2025-09-19 15:30] VITALS: PULSE 88; O2SAT 96
[2025-09-19 15:34] LABS: Hematocrit 43.2 % (37.0-47.0); Hemoglobin 13.9 g/dL (12.2-16.2); Immature Granulocytes % 0.5 %; Mean Corpuscular HGB Conc 32.2 g/dL (31.8-35.4); Mean Corpuscular Hemoglobin 29.6 pg (27.0-31.2); Mean Corpuscular Volume 92.1 fl (81-99); Nucleated Red Blood Cells % 0 %; Platelet Count 225 K/mm3 (142-424); Red Blood Count 4.69 M/mm3 (4.20-5.40); Red Cell Distribution Width-SD 41.4 fL; White Blood Count 8.8 K/mm3 (4.8-10.8)
[2025-09-19] MEDS: MORPHINE 2MG/ML SYRINGE 2 MG IV (15:41)
[2025-09-19] MEDS: ONDANSETRON 4MG/2ML VIAL 4 MG IV (15:41)
[2025-09-19 15:46] LABS: Chloride 109 mmol/L (98-107); Potassium 3.6 mmoL/L (3.5-5.1); Sodium 142 mmol/L (136-145)
[2025-09-19 15:48] LABS: Blood Urea Nitrogen 13 mg/dl (7-17); Creatinine Clearance Estimated 88 mL/min (50-200); Creatinine,Serum 1.10 mg/dl (0.52-1.04); Estimated Glomerular Filt Rate 52 ml/min (>60); GFR (African American) 63 ML/MIN (>60)
[2025-09-19 15:49] LABS: Alanine Aminotransferase 31 U/L (12-78); Alkaline Phosphatase 101 U/L (38-126); Anion Gap 11.6 mEq/L (5-15); Aspartate Amino Transferase 27 U/L (14-36); Bilirubin,Total 0.3 mg/dl (0.2-1.3); Calcium 9.9 mg/dl (8.4-10.2); Carbon Dioxide 25 mmol/L (22.0-30.0); Glucose 111 mg/dl (74-100); Lipase 86 U/L (23-300); Total Protein,Serum 7.7 g/dl (6.3-8.2)
[2025-09-19 16:15] LABS: Albumin Level 4.7 g/dl (3.5-5.0); Albumin/Globulin Ratio 1.6 (1.1-1.8); Globulin 3.0 g/dL (1.3-3.2)
[2025-09-19 16:37] LABS: Hepatitis C Ab Qual. W/ RFX NEGATIVE (Negative)
[2025-09-19 16:51] VITALS: BP 144/75; PULSE 73; RESP 16; TEMP 36.8; O2SAT 100
== END 2025-09-19 17:02 | disposition home or self-care (01) ==
PROVIDERS: Physician Assistant; Emergency Provider Student in an Organized Health Care Education/Training Program; PCP Family Medicine
DX: L05.01 Pilonidal cyst with abscess (principal)
CPT/HCPCS: 10081; 80053; 83605; 83690; 85025; 86803; 87040; 87389; 96374; 96375; 99284; 99285; J2004; J2270; J2405